=== PATIENT | female | born 1955 | race Caucasian/White ===

== ENCOUNTER 2022-04-21 06:55 | Day surgery (SDC) | payer OTHER ==
[2022-04-20 11:52] LABS: ANION GAP 9.9 (8-16); CARBON DIOXIDE 28.9 mmol/L (21-32); CREATININE 0.6 mg/dL (0.6-1.3); POTASSIUM 3.8 mmol/L (3.5-5.1)
[2022-04-20 11:59] LABS: BASOPHILS % (AUTO) 0.6 % (0.0-2.0); EOSINOPHILS # (AUTO) 0.1 K/uL (0-0.4); EOSINOPHILS % (AUTO) 1.1 % (0.0-4.0); HEMATOCRIT 41.7 % (36-48); HEMOGLOBIN 13.8 g/dL (12.0-16.0); LYMPHOCYTES # (AUTO) 2.1 K/uL (2.5-16.5); LYMPHOCYTES % (AUTO) 31.5 % (20.5-51.1); MEAN CORPUSCULAR HEMOGLOBIN 30 pg (27-31); MEAN CORPUSCULAR HGB CONC 33 g/dL (33-37); MEAN CORPUSCULAR VOLUME 90.2 fL (80-94); MONOCYTES # (AUTO) 0.6 K/uL (0.8-1.0); MONOCYTES % (AUTO) 9.1 % (1.7-9.3); NEUTROPHILS # (AUTO) 3.9 K/uL (1.8-7.7); NEUTROPHILS % (AUTO) 57.7 % (42.2-75.2); PLATELET COUNT (AUTO) 293 K/uL (140-450); RED BLOOD CELL COUNT(AUTO) 4.63 MIL/uL (4.20-5.40); RED CELL DISTRIBUTION WIDTH 13.4 % (11.6-13.7); WHITE BLOOD COUNT (AUTO) 6.7 K/uL (4.8-10.8)
[~2022-04-21] VITALS: Ht 165.1 cm; Wt 89.8 kg
[2022-04-21] MEDS ORDERED: LIDOCAINE 1% 500 MG/50 ML VIAL ONE ×2 (07:33→07:39)
[2022-04-21] MEDS ORDERED: BUPIVACAINE-MPF/EPI 0.25% 10 ML VIAL INJ ONE (07:33)
[2022-04-21] MEDS ORDERED: HYDROGEN PEROXIDE 3% 240 ML BTL TP ONE (07:34)
[2022-04-21] MEDS ORDERED: BUPIVACAINE-MPF 0.25% 30 ML VIAL INJ ONE (07:36)
[2022-04-21] MEDS ORDERED: SEVOFLURANE 250 ML BTL INH ONE (09:42)
[2022-04-21] MEDS ORDERED: SUCCINYLCHOLINE CHLORIDE 200 MG/10 ML VIAL IVP ONE (09:42)
[2022-04-21] MEDS ORDERED: fentaNYL citrate 0.05 MG/ML VIAL ONE (09:54)
[2022-04-21] MEDS ORDERED: KETOROLAC 30 MG/ML VIAL ONE (10:31)
[2022-04-21] MEDS ORDERED: ATROPINE 0.4 MG/ML VIAL ONE (10:31)
[2022-04-21] MEDS ORDERED: PROPOFOL 200 MG/20 ML VIAL IV ONE ×2 (10:31)
[2022-04-21] MEDS ORDERED: ONDANSETRON 4 MG/2 ML VIAL ONE (10:33)
== END 2022-04-21 12:15 | disposition home or self-care (01) ==
LOC: MMU 06:55 → MDS 06:55
PROVIDERS: ATTEND Surgery
DX: K60.3 Anal fistula (principal); K62.89 Other specified diseases of anus and rectum; I10 Essential (primary) hypertension; G62.9 Polyneuropathy, unspecified; Z20.822 Contact with and (suspected) exposure to COVID-19
CPT/HCPCS: 36415; 46275; 71045; 80048; 85025; 87426; 93005; J0330; J0461; J1885; J2001; J2405; J2704; J3010; J3490